=== PATIENT | male | born 1950 | race Caucasian/White ===

== ENCOUNTER 2016-12-21 18:57 | Observation (INO) ==
[2016-12-21] MEDS ORDERED: BOOSTRIX VACCINE IM ONE (19:50)
[2016-12-21] MEDS ORDERED: KEFZOL IM ONE (19:50)
[2016-12-21] MEDS ORDERED: KEFZOL 1 GM/D5W 1 GM/50 ML IVPB IV ONE (19:56)
--- NOTE | 2016-12-21 20:06 | Diag Imaging Result Doc PS360 ---
EXAM: FOOT COMPLETE LEFT HISTORY: L foot pain, 4th toe TECHNIQUE: Three views COMPARISON: None. FINDINGS: There is a transverse fracture through the midportion of the proximal phalanx of the fifth toe. There is an oblique fracture through the distal portion of the proximal phalanx of the fourth toe. This extends into the proximal interphalangeal joint and there is angulation. IMPRESSION: Fractures to the proximal fourth and fifth toes. Electronically signed by Benja Lewis 12/21/2016 8:04 PM
[2016-12-21] MEDS ORDERED: ZOFRAN IV PRN (20:55)
[2016-12-21] MEDS ORDERED: MORPHINE IV PRN (20:55)
[2016-12-21] MEDS ORDERED: NS 1,000 ML IV ONE (21:00)
[2016-12-21] MEDS ORDERED: KEFZOL 1 GM/D5W 1 GM/50 ML IVPB IV SCH (21:00)
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
[2016-12-22] MEDS: KEFZOL 1 GM/D5W 1 GM/50 ML IVPB IV SCH ×4 (01:01→18:44)
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
[2016-12-22 08:44] LABS: MANUAL DIFF NEEDED? NO
[2016-12-22 08:47] LABS: BASO% 0.4 % (0.0-0.8); EOS# 0.08 X1000 (0.0-0.7); HEMATOCRIT 44.9 % (42.0-52.0); HEMOGLOBIN 15.4 g/dL (14.0-18.0); IMM GRAN# 0.02 X1000 (0.0-0.04); IMM GRAN% 0.2 % (0.0-0.5); LYMPH% 16.9 % (20.5-51.1); MCH 34.1 PG (27-31); MCHC 34.3 g/dL (33-37); MCV 99.6 FL (81-99); MONO# 0.99 X1000 (0.11-0.59); MONO% 11.9 % (1.7-9.3); MPV 10.4 FL (7.4-10.4); NEUT% 69.6 % (42.2-75.2); PLT 158 X1000 (130-400); RBC 4.51 XMIL (4.7-6.1)
[2016-12-22 08:54] LABS: INR 1.68; PROTIME 18.2 Seconds (9.2-11.7)
[2016-12-22 09:07] LABS: AGAP 13; ALBUMIN 3.2 g/dL (3.5-5.0); ALKALINE PHOSPHATASE 96 U/L (32-122); BUN 11 mg/dL (8-22); CHLORIDE 97 mmol/L (98-107); COSMO 270; GOT 20 U/L (10-34); GPT 15 U/L (10-44); POTASSIUM 4.3 mmol/L (3.5-5.1); SODIUM 135 mmol/L (136-145); TCO2 25 mmol/L (25-35); TOTAL BILIRUBIN 1.65 mg/dL (0.20-1.00); TOTAL PROTEIN 6.5 g/dL (6.3-8.3)
[2016-12-22] MEDS ORDERED: KEFZOL 1 GM/D5W 1 GM/50 ML IVPB ONE (09:59)
[2016-12-22] MEDS ORDERED: NEOSPORIN G.U. IRRIGANT ONE (10:01)
[2016-12-22] MEDS ORDERED: DIPRIVAN 1% ONE (11:06)
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
[2016-12-22] MEDS: APRESOLINE PO SCH (20:32)
[2016-12-22] MEDS: TOPROL XL PO SCH (20:33)
[2016-12-22] MEDS: PRINIVIL PO SCH (20:33)
[2016-12-22] MEDS ORDERED: MELATONIN PO SCH (21:00)
[2016-12-22] MEDS ORDERED: COUMADIN PO SCH (21:00)
[2016-12-23] MEDS: KEFZOL 1 GM/D5W 1 GM/50 ML IVPB IV SCH ×2 (02:33→09:13)
--- NOTE | 2016-12-23 05:23 | EKG Report ---
Test Performed on : 12/22/2016 12:26:29 PM Test Reason : CP Blood Pressure : / mmHG Vent. Rate : 069 BPM Atrial Rate : 084 BPM P-R Int : 000 ms QRS Dur : 102 ms QT Int : 446 ms P-R-T Axes : 000 046 213 degrees QTc Int : 477 ms Atrial fibrillation. Incomplete right bundle branch block ST \T\ Marked T wave abnormality, consider anterolateral ischemia Prolonged QT Abnormal ECG When compared with ECG of 28-JAN-2014 11:44, Atrial fibrillation. has replaced Sinus rhythm. Nonspecific T wave abnormality now evident in Inferior leads Confirmed by Pk France MD ([id number]) on 12/23/2016 8:20:51 AM
--- NOTE | 2016-12-23 08:02 | PROGRESS NOTE ---
DATE: 12/23/2016 SUBJECTIVE: Hira Hill is a 66-year-old male who is postoperative from a pinning of his left foot by Dr. Gonzales. He has no complaints. OBJECTIVE: Is a well-developed, well-nourished male. He is alert, oriented, and cooperative to exam. His vital signs are stable. He is afebrile. His dressing is clean, dry, intact without sign of any bleeding through the dressing. ASSESSMENT: Stable after pinning of left toe. PLAN: He wishes to follow in [place] with me. We will make him appointment. Ask physical therapy to see him for touch down weightbearing in his boot. I have instructed him in boot wear, and I have also ordered a walker for him. He can be discharged to home when cleared by Dr. Garibay. He can follow up with me in [address] Gonzales has antibiotics and pain medicine on the chart. cc: MD Mary Kay Valdovinos MD
[2016-12-23] MEDS ORDERED: ZOFRAN ONE (08:48)
[2016-12-23] MEDS ORDERED: LR 1,000 ML ONE (08:48)
[2016-12-23] MEDS ORDERED: XYLOCAINE-MPF 2% ONE (08:48)
[2016-12-23] MEDS ORDERED: DECADRON ONE (08:48)
[2016-12-23] MEDS ORDERED: KLOR-CON PO SCH (09:00)
[2016-12-23] MEDS ORDERED: ADALAT CC PO SCH (09:00)
[2016-12-23] MEDS ORDERED: LASIX PO SCH (09:00)
[2016-12-23] MEDS ORDERED: CYMBALTA PO SCH (09:00)
[2016-12-23] MEDS ORDERED: FOLIC ACID PO SCH (09:00)
[2016-12-23] MEDS: PRINIVIL PO SCH (09:13)
[2016-12-23] MEDS: APRESOLINE PO SCH (09:13)
[2016-12-23] MEDS: TOPROL XL PO SCH (09:14)
[2016-12-23 09:35] LABS: INR 1.21; PROTIME 12.9 Seconds (9.2-11.7)
[2016-12-23 09:53] LABS: ALBUMIN 3.3 g/dL (3.5-5.0); DIRECT BILIRUBIN 0.3 mg/dL (0.00-0.20); TOTAL BILIRUBIN 0.88 mg/dL (0.20-1.00); TOTAL PROTEIN 6.5 g/dL (6.3-8.3)
[2016-12-23 12:08] VITALS: BP 152/73
== END 2016-12-23 16:58 | disposition home or self-care (01) ==
LOC: ED 18:57 → 4N 18:57
PROVIDERS: ADMIT Internal Medicine; ATTEND Internal Medicine